=== PATIENT | female | born 1975 | race Caucasian/White ===

== ENCOUNTER 2020-07-12 04:29 | Emergency (ER) | payer SELFPAY ==
[~2020-07-12] VITALS: Ht 165.1 cm; Wt 54.5 kg
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
[2020-07-12] MEDS ORDERED: KETOROLAC 15 MG/ML VIAL. IVP ONE (04:45)
[2020-07-12 04:55] LABS: BASO # 0.1 x10^3/uL (0.0-0.2); BASO % 1 % (0-3); EOS % 0 % (0-3); HEMOGLOBIN 13.2 g/dL (12.0-15.5); LYMPH # 0.9 x10^3/uL (1.0-4.8); LYMPH % 6 % (24-48); MEAN CORPUSCULAR HEMOGLOBIN 29 pg (25-35); MEAN CORPUSCULAR HGB CONC 34 g/dL (31-37); MEAN CORPUSCULAR VOLUME 85 fL (79-100); MONO # 1.5 x10^3/uL (0.0-1.1); MONO % 9 % (0-9); NEUT % 84 % (31-73); PLATELET COUNT 252 x10^3/uL (140-400); RED BLOOD COUNT 4.57 x10^6/uL (3.50-5.40); RED CELL DISTRIBUTION WIDTH 13.6 % (11.5-14.5); WHITE BLOOD COUNT 15.6 x10^3/uL (4.0-11.0)
[2020-07-12 05:03] LABS: BILIRUBIN,URINE NEGATIVE (NEG); CLARITY,URINE CLEAR; COLOR,URINE YELLOW; NITRITE,URINE POSITIVE (NEG); PROTEIN,URINE NEGATIVE (NEG-TRACE)
[2020-07-12 05:03] LABS: CALCIUM 8.9 mg/dL (8.5-10.1); CREATININE 0.9 mg/dL (0.6-1.0); GFR 68.7; POTASSIUM 3.6 mmol/L (3.5-5.1)
[2020-07-12 05:08] LABS: ALBUMIN 4.3 g/dL (3.4-5.0); ALBUMIN/GLOBULIN RATIO 1.2 (1.0-1.7); TOTAL BILIRUBIN 0.6 mg/dL (0.2-1.0); TOTAL PROTEIN 7.9 g/dL (6.4-8.2)
[2020-07-12 05:09] LABS: BACTERIA,URINE MANY /HPF (0-FEW); BARBITURATES NEG (NEG); BENZODIAZEPINES NEG (NEG); CANNABINOIDS NEG (NEG); COCAINE NEG (NEG); METHADONE NEG (NEG); OPIATES NEG (NEG); PHENCYCLIDINE NEG (NEG)
[2020-07-12 05:10] LABS: AMPHETAMINE/METHAMPHETAMINE POS (NEG); TRICHOMONAS,URINE PRESENT
[2020-07-12 05:17] LABS: % LYMPHS 5 % (24-48); % MONOS 6 % (0-10); % SEGS 89 % (35-66); PLT ESTIMATE ADEQUATE (ADEQUATE)
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
[2020-07-12] MEDS ORDERED: HYDROcodone/APAP 5/325MG 1 TAB TABLET PO ONE (05:30)
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
[2020-07-12] MEDS ORDERED: LEVO750T5 PO (05:47)
[2020-07-12 06:07] VITALS: BP 110/60
--- NOTE | 2020-07-12 17:28 | NUR ---
IP: Attempted to contact pt concerning COVID results. Number provided in not in service.
== END 2020-07-12 06:25 | disposition home or self-care (01) ==
LOC: ER 04:29
DX: J18.9 Pneumonia, unspecified organism (principal); M54.2 Cervicalgia; M25.512 Pain in left shoulder; Z20.822 Contact with and (suspected) exposure to COVID-19; Y08.89XA Assault by other specified means, initial encounter; Y93.89 Activity, other specified; Y92.89 Other specified places as the place of occurrence of the external cause; Y99.8 Other external cause status
CPT/HCPCS: 36415; 70450; 71250; 72125; 74176; 80053; 80307; 81001; 81025; 85007; 85025; 87077; 87086; 87186; 96374; 99285; J1885; U0003; U0005